=== PATIENT | female | born 1980 | race Caucasian/White ===

== ENCOUNTER 2019-10-24 14:38 | Emergency (ER) | payer MEDICAID, SELFPAY ==
[2019-10-24 14:52] VITALS: BP 125/65; PULSE 71; RESP 17; TEMP 36.4; O2SAT 100; BMI 20.7
--- NOTE | 2019-10-24 14:54 | W.ED.HA ---
HPI - Headache General: Chief Complaint: Headache Stated Complaint: AZUL, fever Time Seen by Provider: 10/24/19 14:49 Source: patient Mode of arrival: ambulatory Limitations: no limitations History of Present Illness: HPI Narrative: 39-year-old female who has a long history of migraines states she started having a migraine headache roughly an hour ago. She states this feels like previous migraines and gradually worsened. She has light sensitivity along with sensitivity to loud noises. She denies any vomiting. She denies any neck pain. MD elicited complaint: headache Onset (ago): hour(s) Onset description: gradually Location: diffuse Severity: moderate Quality & Timing: aching Exacerbating factors: light Relieving factors: dark room Associated symptoms: Deny chest pain, fever(s), nausea, rash or vomiting Review of Systems Const: Denies: fever, chills, body aches or change in appetite Eyes: Denies: blurry vision or eye discomfort ENMT: Denies: throat pain or dental pain Card: Denies: chest pain Resp: Denies: shortness of breath GI: Denies: abdominal pain, nausea, vomiting or diarrhea : Denies: painful urination Musc: Denies: neck pain or back pain Skin/Breast: Denies: rash Neuro: Reports: headache Psych: Denies: depression Gaudencio/Lymph: Denies: easy bruising All/Imm: Denies: hives PFSH ED PFSH: Social History Smoking and tobacco status: current every day smoker Physical Exam Const: COMMON NORMALS: no apparent distress, oriented x3 and healthy appearing HENMT: COMMON NORMALS: normocephalic and head/scalp atraumatic HEAD & SCALP: normocephalic and atraumatic Eye: COMMON NORMALS: PERRL and EOMs intact bilaterally PUPIL: Yes PERRL Neck/C-Spine: COMMON NORMALS: full ROM and supple Chest: COMMONS NORMALS: inspection of chest normal and palpation of chest normal Resp: COMMON NORMALS: normal respiratory effort, no retractions, no use of accessory muscles and clear to auscultation bilaterally AUSCULTATION: clear to auscultation bilaterally Cardio: COMMON NORMALS: regular rate, regular rhythm and no murmurs RATE: regular rate RHYTHM: regular rhythm GI: COMMON NORMALS: normal to inspection, nondistended, normoactive bowel sounds, soft to palpation, non-tender and no masses PALPATION: Yes soft Extremity: COMMON NORMALS: normal to inspection and full ROM Neuro: COMMON NORMALS: oriented x3, moves all extremities and no focal motor deficits Psych: COMMON NORMALS: mental status grossly normal, thought process normal and cooperative THOUGHT PROCESS: normal thought process Skin: COMMON NORMALS: no rashes or lesions noted and no wounds GENERAL SKIN EXAM: no rashes or lesions noted Course Vital Signs: Vital signs: Vital Signs Temperature 97.6 F 10/24/19 14:52 Pulse Rate 71 10/24/19 14:52 Respiratory Rate 17 10/24/19 14:52 Blood Pressure 125/65 10/24/19 14:52 Pulse Oximetry 100 10/24/19 14:52 MDM - Headache MDM Narrative: Medical decision making narrative: Patient presents with a headache that is likely a migraine headache. Patient is well-appearing here and has no signs of meningitis or subarachnoid hemorrhage. Patient's headache is much improved after IV Reglan and Benadryl. Patient is to return if worsening. Discharge Plan Discharge Prescriptions: No Action Multiple Vitamins Tablet 1 tab PO DAILY RF: 0 amlodipine 2.5 mg tablet 2.5 mg PO DAILY RF: 0 Aspir-81 81 mg Tablet,Delayed Release (Dr/Ec) 81 mg PO DAILY RF: 0 alprazolam 0.5 mg tablet 0.5 mg PO TID PRN (Reason: Anxiety) RF: 0 gabapentin 300 mg capsule 300 mg PO TID RF: 0 Tylenol 1 tab PO PRN RF: 0 ibuprofen 1 tab PO PRN RF: 0 Coding Level of Care Code ED Respiratory Therapy Instructor for Chg Fwd Exam Comprehensive
[2019-10-24] MEDS: metoclopramide 5 mg/mL SDV 2 mL 10 MG IVP (15:17)
[2019-10-24] MEDS: diphenhydrAMINE 50 mg/mL SDV 1mL IVP (15:19)
[2019-10-24] MEDS: ketorolac 30 mg/mL INJ IVP (15:20)
[2019-10-24 16:37] VITALS: BP 113/93; PULSE 66; RESP 18; O2SAT 98
[2019-10-24 17:12] VITALS: BP 126/91; PULSE 79; RESP 15; O2SAT 95
== END 2019-10-24 17:13 | disposition home or self-care (01) ==
PROVIDERS: Emergency Provider Emergency Medicine
DX: R51 Headache (principal); Z79.82 Long term (current) use of aspirin; F17.210 Nicotine dependence, cigarettes, uncomplicated
CPT/HCPCS: 12345; 96374; 96375; 99282; 99283; J1200; J1885; J2765

== ENCOUNTER → 2020-05-01 15:17 | Outpatient (BNVA) | payer MEDICAID, SELFPAY | PROVIDERS: PCP Family Medicine; Visit Provider Internal Medicine Rheumatology | DX: I73.1 Thromboangiitis obliterans [Buerger's disease] (principal); R76.8 Other specified abnormal immunological findings in serum; R23.0 Cyanosis; F17.210 Nicotine dependence, cigarettes, uncomplicated | CPT/HCPCS: 99204 ==

== ENCOUNTER 2020-05-09 15:16 | Outpatient (CLI) | payer MEDICAID, SELFPAY ==
--- NOTE | 2020-05-09 15:32 | XRR_ITS ---
PROCEDURE INFORMATION: Exam: XR Left Hand Exam date and time: 05/09/2020 3:37 PM Age: 39 years old Clinical indication: Condition or disease; Other: Buerger's disease TECHNIQUE: Imaging protocol: XR Left hand. Views: 3 or more views. COMPARISON: No relevant prior studies available. FINDINGS: Bones/joints: No fracture or other acute osseous abnormality. No acute or chronic joint abnormality demonstrated. Soft tissues: The soft tissues appear unremarkable. XR/XR hand LT min 3V* [id number] IMPRESSION: Unremarkable left hand radiographic series.
--- NOTE | 2020-05-09 15:32 | XRR_ITS ---
PROCEDURE INFORMATION: Exam: XR Left Foot Complete Exam date and time: 05/09/2020 3:37 PM Age: 39 years old Clinical indication: Condition or disease; Other: Buerger's disease TECHNIQUE: Imaging protocol: XR Left foot. Views: 3 or more views. COMPARISON: No relevant prior studies available. FINDINGS: Bones/joints: No fracture or other acute osseous abnormality. No acute or chronic joint abnormality demonstrated. Soft tissues: The soft tissues appear unremarkable. XR/XR foot LT min 3V* [id number] IMPRESSION: Unremarkable left foot radiographic series.
--- NOTE | 2020-05-09 15:32 | XRR_ITS ---
PROCEDURE INFORMATION: Exam: XR Right Hand Exam date and time: 05/09/2020 3:37 PM Age: 39 years old Clinical indication: Condition or disease; Other: Buerger's disease TECHNIQUE: Imaging protocol: XR Right hand. Views: 3 or more views. COMPARISON: No relevant prior studies available. 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 There has been amputation of the distal index finger at the level of the base of the distal phalanx. There is deformity secondary to osteolysis of the distal phalanx of the middle finger. The osseous structures are otherwise unremarkable. No acute or chronic joint abnormality demonstrated. Soft tissues: Absent distal soft tissues of the index and middle fingers. The soft tissues are otherwise unremarkable. XR/XR hand RT min 3V* [id number] IMPRESSION: 1. 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 2. The examination is otherwise unremarkable.
--- NOTE | 2020-05-09 15:32 | XRR_ITS ---
PROCEDURE INFORMATION: Exam: XR Right Foot Complete Exam date and time: 05/09/2020 3:37 PM Age: 39 years old Clinical indication: Condition or disease; Other: Buerger's disease TECHNIQUE: Imaging protocol: XR Right foot. Views: 3 or more views. COMPARISON: No relevant prior studies available. FINDINGS: Bones/joints: No fracture or other acute osseous abnormality. No acute or chronic joint abnormality demonstrated. Soft tissues: The soft tissues appear unremarkable. XR/XR foot RT min 3V* [id number] IMPRESSION: Unremarkable right foot radiographic series.
[2020-05-09 17:10] LABS: Hepatitis B Core AB, Total Reactive (Nonreactive); Hepatitis B Surface Antigen Non-Reactive (Nonreactive); Hepatitis C Virus Antibody Reactive (Nonreactive)
[2020-05-12 11:57] LABS: COMPLEMENT, TOTAL (CH50) >60 U/mL (31-60)
[2020-05-12 13:59] LABS: COMPLEMENT COMPONENT C3C 145 mg/dL (83-193); COMPLEMENT COMPONENT C4C 29 mg/dL (15-57)
[2020-05-12 15:28] LABS: THYROID PEROXIDASE ANTIBODIES 1 IU/mL (<9)
[2020-05-13 11:53] LABS: CENTROMERE B ANTIBODY <1.0 NEG AI (<1.0 NEG); JO-1 ANTIBODY <1.0 NEG AI (<1.0 NEG); RNP ANTIBODY <1.0 NEG AI (<1.0 NEG); SCL-70 ANTIBODY <1.0 NEG AI (<1.0 NEG); SJOGREN'S ANTIBODY (SS-A) <1.0 NEG AI (<1.0 NEG); SM ANTIBODY <1.0 NEG AI (<1.0 NEG)
[2020-05-14 12:58] LABS: ANA PATTERN Nuclear, Speckled; ANA SCREEN, IFA POSITIVE (NEGATIVE)
[2020-05-16 00:28] LABS: DNA AB (DS) CRITHIDIA,IFA NEGATIVE (NEGATIVE)
== END 2020-05-09 15:17 | disposition home or self-care (01) ==
PROVIDERS: PCP Family Medicine; Visit Provider Internal Medicine Rheumatology
DX: I73.1 Thromboangiitis obliterans [Buerger's disease] (principal); R76.8 Other specified abnormal immunological findings in serum; Z89.011 Acquired absence of right thumb
CPT/HCPCS: 73130; 73630; 83516; 86704; 86803; 87340

== ENCOUNTER 2021-02-21 18:08 | Emergency (ER) | payer MEDICAID, SELFPAY ==
[2021-02-21] VITALS (7 sets, daily range): BP systolic 116–140; BP diastolic 72–83; PULSE 76–102; RESP 14–21; TEMP 36.7; O2SAT 92–98
--- NOTE | 2021-02-21 18:57 | CTR_ITS ---
PROCEDURE INFORMATION: Exam: CT Head Without Contrast Exam date and time: 02/21/2021 6:57 PM Age: 40 years old Clinical indication: Syncope and collapse; Patient HX: PT found unresponsive ? fall TECHNIQUE: Imaging protocol: Computed tomography of the head without contrast. Radiation optimization: All CT scans at this facility use at least one of these dose optimization techniques: automated exposure control; mA and/or kV adjustment per patient size (includes targeted exams where dose is matched to clinical indication); or iterative reconstruction. COMPARISON: CT head wo con* [id number] 07/30/2017 12:34 AM RADIATION DOSE METRICS: Total DLP (mGy-cm): 770.95 FINDINGS: Brain: Normal. No hemorrhage. Unremarkable white matter. No mass effect. Cerebral ventricles: No ventriculomegaly. Paranasal sinuses: Visualized sinuses are unremarkable. No fluid levels. Mastoid air cells: Visualized mastoid air cells are well aerated. Bones/joints: Unremarkable. No acute fracture. Soft tissues: Unremarkable. CT/CT head wo con* [id number] IMPRESSION: No acute intracranial abnormality. Radiation Dose CTDIVOL = (mGy): DLP = 770.95 (mGy-cm)
--- NOTE | 2021-02-21 18:58 | XRR_ITS ---
PROCEDURE INFORMATION: Exam: XR Chest Exam date and time: 02/21/2021 6:58 PM Age: 40 years old Clinical indication: Injury or trauma; Fall; Blunt trauma (contusions or hematomas) TECHNIQUE: Imaging protocol: XR of the chest. Views: 1 view. COMPARISON: CT Chest/Abdomen/Pelvis w IV* 07/30/2017 12:49 AM FINDINGS: Lungs: Emphysema. No focal lung opacities. No vascular dilation. Pleural spaces: Unremarkable. No pleural effusion. No pneumothorax. Heart/Mediastinum: Unremarkable. No cardiomegaly. Bones/joints: Unremarkable. XR/XR chest 1V portable [id number] IMPRESSION: Negative chest. No acute abnormality identified.
[2021-02-21 19:02] LABS: Glucose Point of Care 91 mg/dL (70-110)
[2021-02-21] MEDS: sodium chloride 0.9% 1,000 ML 999 ML IV (19:04)
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
[2021-02-21] MEDS: naloxone 0.4 mg/ml SDV IVP (21:13)
== END 2021-02-21 22:27 | disposition home or self-care (01) ==
PROVIDERS: Emergency Provider Emergency Medicine; PCP Family Medicine
DX: T40.601A Poisoning by unspecified narcotics, accidental (unintentional), initial encounter (principal); T40.7X1A Poisoning by cannabis (derivatives), accidental (unintentional), initial encounter; Z79.82 Long term (current) use of aspirin; F17.210 Nicotine dependence, cigarettes, uncomplicated
CPT/HCPCS: 36416; 70450; 71045; 82962; 96361; 96374; 99284; J2310; J7030

== ENCOUNTER 2021-03-02 19:58 | Emergency (ER) | payer MEDICAID, SELFPAY ==
[2021-03-02 20:05] VITALS: BP 143/90; PULSE 93; RESP 16; TEMP 36.7; O2SAT 95; BMI 24.0
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
[2021-03-02] MEDS: naproxen 500 mg Tablet PO (20:21)
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
[2021-03-02 21:33] VITALS: RESP 16
== END 2021-03-02 21:34 | disposition home or self-care (01) ==
PROVIDERS: Emergency Provider Emergency Medicine; PCP Family Medicine
DX: M25.572 Pain in left ankle and joints of left foot (principal); M25.521 Pain in right elbow; F17.210 Nicotine dependence, cigarettes, uncomplicated; V89.2XXA Person injured in unspecified motor-vehicle accident, traffic, initial encounter
CPT/HCPCS: 73080; 73610; 73630; 99283

== ENCOUNTER 2022-04-30 11:23 | Emergency (ER) | payer MEDICAID, SELFPAY ==
[2022-04-30 11:30] VITALS: BP 140/92; PULSE 118; RESP 18; TEMP 36.4; O2SAT 94; BMI 22.8
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
--- NOTE | 2022-04-30 11:41 | XR_ITS ---
WS: [id number] Exam: XR finger LT min 2V [id number] Date/Time of Exam: 04/30/2022 12:23 PM Reason For Exam: 3rd digit distal necrosis The third finger is targeted for radiographic evaluation. No acute fracture or bone destruction. Mild soft tissue swelling No radiopaque soft tissue foreign damon dies are seen. Joint structures are intact. XR/XR finger LT min 2V [id number] IMPRESSION: 1. Soft tissue swelling of the distal third finger but no fracture or bone dest ruction.
[2022-04-30 12:03] VITALS: RESP 16
[2022-04-30] MEDS: morphine 4 mg/mL SDV 1 mL IVP (12:03)
[2022-04-30 12:21] LABS: Basophils % 0.5 %; Eosinophils # 0.1 10^3/uL (0.0-0.8); Eosinophils % 1.5 %; Hematocrit 50.7 % (37.0-47.0); Hemoglobin 16.1 g/dL (11.5-15.3); Lymphocytes # 2.2 10^3/uL (0.8-4.8); Lymphocytes % 33.6 %; Mean Corpuscular HGB Conc 31.8 g/dL (30.0-36.0); Mean Corpuscular Hemoglobin 26.1 pg (28.0-34.0); Mean Corpuscular Volume 82.2 fl (81-99); Mean Platelet Volume 11.7 fL (7.4-10.4); Monocytes # 0.8 10^3/uL (0.2-0.9); Monocytes % 12.3 %; Neutrophils # 3.41 10^3/uL (1.8-7.7); Neutrophils % 51.8 %; Nucleated Red Blood Cells % 0 %; Platelet Count 224 10^3/cmm (130-400); Red Blood Count 6.17 10^6/uL (4.1-5.3); Red Cell Distribution Width 14.5 % (12.1-15.1); White Blood Count 6.6 10^3/uL (4.0-10.0)
[2022-04-30 12:24] LABS: Erythrocyte Sedimentation Rate 6 mm/hr (0-15)
[2022-04-30 12:38] LABS: Alanine Aminotransferase 32 U/L (0-33); Albumin Level 4.1 g/dL (3.5-5.2); Alkaline Phosphatase 185 U/L (35-105); Anion Gap 12.9 (5-19); Aspartate Amino Transferase 21 U/L (0-32); Blood Urea Nitrogen 14 mg/dL (6-20); Calcium 9.3 mg/dL (8.5-10.5); Carbon Dioxide 27 mmol/L (22-29); Chloride 99 mmol/L (98-107); Globulin 3.5 g/dL (1.3-4.6); Glomerular Filtration Rate 91.8 mL/min (90-130); Glucose 100 mg/dL (65-115); Osmolality Calculated 281 mOsm/kg (285-295); Potassium 3.9 mmol/L (3.5-5.1); Sodium 135 mmol/L (136-145); Total Bilirubin 0.2 mg/dL (0.15-1.2); Total Protein 7.6 g/dL (6.6-8.7)
[2022-04-30 12:39] LABS: Lactic Sepsis W/Reflex 1.3 mmol/L (0.5-2.2)
--- NOTE | 2022-04-30 12:55 | PC.PHAR ---
pt states she takes care of her own medications-pt states still taking amlodipine 10mg daily [facility] pharmacy states last filled 02/10/2021-pt states she had an old rx for norco 5-325mg [facility] pharmacy states they havent filled a norco for the pt-pt states she took her last one today-notes are made in the pharmacy comments
[2022-04-30] MEDS: sodium chloride 0.9% 1,000 ML 999 ML IV (13:12)
--- NOTE | 2022-04-30 13:14 | PC.NURSE ---
while at bedside pt is in nad. pt denies any further needs.
[2022-04-30 14:23] VITALS: BP 124/86; PULSE 77; RESP 16; O2SAT 100
--- NOTE | 2022-05-03 14:25 | DCPLANNER ---
Addendum entered by Lauren Can 05/13/22 13:58: Patient had a follow up appointment scheduled for 05.06.[address] Bai at ortho - patient did attend appointment. Original Note: corporate operations compliance manager had message to schedule a follow up appointment for patient with ortho. corporate operations compliance manager sent patients information to the front office staff at ortho. Patients information will be printed and reviewed. Clinic will call patient with appointment information.
== END 2022-04-30 14:25 | disposition home or self-care (01) ==
PROVIDERS: Emergency Provider Emergency Medicine; PCP Family Medicine
DX: I96 Gangrene, not elsewhere classified (principal); I73.1 Thromboangiitis obliterans [Buerger's disease]; Z79.82 Long term (current) use of aspirin; F17.210 Nicotine dependence, cigarettes, uncomplicated
CPT/HCPCS: 73140; 80053; 83605; 85025; 85651; 86140; 96374; 99284; J2270; J7030

== ENCOUNTER 2022-05-02 01:11 | Emergency (ER) | payer MEDICAID, SELFPAY ==
[2022-05-02 01:49] VITALS: BP 133/86; PULSE 68; RESP 17; TEMP 36.6; O2SAT 99; BMI 22.9
[2022-05-02 03:27] VITALS: RESP 20; O2SAT 94
[2022-05-02] MEDS: oxyCODONE-APAP 5-325 mg Tablet 2 TAB PO (03:27)
[2022-05-02] MEDS: cephALEXin 500 mg Capsule 1000 MG PO (03:28)
[2022-05-02] MEDS: ondansetron 2 mg/ML SDV 2 mL 4 MG IVP (03:28)
[2022-05-02] MEDS: ketorolac 30 mg/mL INJ IM (03:29)
[2022-05-02 03:38] VITALS: BP 114/70
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
== END 2022-05-02 03:41 | disposition home or self-care (01) ==
PROVIDERS: Emergency Provider Emergency Medicine; PCP Family Medicine
DX: I73.1 Thromboangiitis obliterans [Buerger's disease] (principal); L98.499 Non-pressure chronic ulcer of skin of other sites with unspecified severity; L03.012 Cellulitis of left finger; Z79.82 Long term (current) use of aspirin; F17.210 Nicotine dependence, cigarettes, uncomplicated
CPT/HCPCS: 96372; 96374; 99284; J1885; J2405

== ENCOUNTER 2022-05-14 14:50 | Emergency (ER) | payer MEDICAID, SELFPAY ==
[2022-05-14 15:21] VITALS: BP 136/84; PULSE 85; RESP 16; TEMP 36.5; O2SAT 97; BMI 24.3
--- NOTE | 2022-05-14 17:19 | XRR_ITS ---
PROCEDURE INFORMATION: Exam: XR Left Finger(s) Exam date and time: 05/14/2022 5:54 PM Age: 41 years old Clinical indication: Pain; Finger(s); Left; Additional info: Ischemia with wound finger, middle TECHNIQUE: Imaging protocol: Radiologic exam of the Left fingers. Views: Minimum 2 views. COMPARISON: No relevant prior studies available. FINDINGS: Bones/joints: Osteolytic changes in the distal phalangeal tuft of the 3rd digit. The bone is fragmented. Unremarkable joint spaces. Soft tissues: The 3rd digit distal soft tissues are truncated with possible ulcer. XR/XR finger LT min 2V [id number] IMPRESSION: Nonspecific acro-osteolysis changes of 3rd digit distal phalanx.
[2022-05-14 19:32] LABS: Basophils % 0.4 %; Eosinophils # 0.1 10^3/uL (0.0-0.8); Eosinophils % 1.1 %; Hematocrit 47.7 % (37.0-47.0); Hemoglobin 15.6 g/dL (11.5-15.3); Lymphocytes # 2.3 10^3/uL (0.8-4.8); Lymphocytes % 32.1 %; Mean Corpuscular HGB Conc 32.7 g/dL (30.0-36.0); Mean Corpuscular Hemoglobin 26.6 pg (28.0-34.0); Mean Corpuscular Volume 81.3 fl (81-99); Mean Platelet Volume 10.9 fL (7.4-10.4); Monocytes # 0.5 10^3/uL (0.2-0.9); Monocytes % 6.7 %; Neutrophils # 4.25 10^3/uL (1.8-7.7); Neutrophils % 59.3 %; Nucleated Red Blood Cells % 0 %; Platelet Count 251 10^3/cmm (130-400); Red Blood Count 5.87 10^6/uL (4.1-5.3); White Blood Count 7.2 10^3/uL (4.0-10.0)
[2022-05-14 19:33] LABS: Erythrocyte Sedimentation Rate 3 mm/hr (0-15)
[2022-05-14 19:49] LABS: Alanine Aminotransferase 41 U/L (0-33); Albumin Level 4.4 g/dL (3.5-5.2); Alkaline Phosphatase 304 U/L (35-105); Anion Gap 13.9 (5-19); Aspartate Amino Transferase 24 U/L (0-32); Blood Urea Nitrogen 10 mg/dL (6-20); Calcium 10.1 mg/dL (8.5-10.5); Carbon Dioxide 26 mmol/L (22-29); Chloride 99 mmol/L (98-107); Glomerular Filtration Rate 91.8 mL/min (90-130); Glucose 82 mg/dL (65-115); Osmolality Calculated 278 mOsm/kg (285-295); Potassium 3.9 mmol/L (3.5-5.1); Sodium 135 mmol/L (136-145); Total Bilirubin 0.3 mg/dL (0.15-1.2); Total Protein 8.4 g/dL (6.6-8.7)
== END 2022-05-14 20:51 | disposition left against medical advice (07) ==
PROVIDERS: Emergency Medicine; Emergency Provider Family Medicine; PCP Family Medicine
DX: Z53.21 Procedure and treatment not carried out due to patient leaving prior to being seen by health care provider (principal)
CPT/HCPCS: 36415; 73140; 80053; 85025; 85651; 86140; 99283

== ENCOUNTER 2022-05-16 11:05 | Emergency (ER) | payer MEDICAID, SELFPAY ==
[2022-05-16 11:33] VITALS: BP 110/80; PULSE 77; RESP 16; TEMP 36.2; O2SAT 98
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
[2022-05-16 14:43] LABS: Basophils % 0.7 %; Eosinophils # 0.1 10^3/uL (0.0-0.8); Eosinophils % 1.1 %; Hematocrit 48.5 % (37.0-47.0); Hemoglobin 15.5 g/dL (11.5-15.3); Lymphocytes # 1.7 10^3/uL (0.8-4.8); Mean Corpuscular Hemoglobin 26.5 pg (28.0-34.0); Mean Corpuscular Volume 82.8 fl (81-99); Mean Platelet Volume 10.8 fL (7.4-10.4); Monocytes # 0.7 10^3/uL (0.2-0.9); Monocytes % 12.5 %; Neutrophils # 3.14 10^3/uL (1.8-7.7); Neutrophils % 55.3 %; Nucleated Red Blood Cells % 0 %; Platelet Count 226 10^3/cmm (130-400); Red Blood Count 5.86 10^6/uL (4.1-5.3); White Blood Count 5.7 10^3/uL (4.0-10.0)
[2022-05-16 14:54] VITALS: BP 124/83; PULSE 71; RESP 16; TEMP 36.2; O2SAT 96
== END 2022-05-16 14:55 | disposition home or self-care (01) ==
PROVIDERS: Emergency Provider Family Medicine; PCP Family Medicine
DX: L03.012 Cellulitis of left finger (principal); F17.210 Nicotine dependence, cigarettes, uncomplicated; I73.1 Thromboangiitis obliterans [Buerger's disease]; I70.90 Unspecified atherosclerosis
CPT/HCPCS: 36415; 85025; 87040; 99283

== ENCOUNTER 2022-12-12 16:17 | Emergency (ER) | payer MEDICAID, SELFPAY ==
[2022-12-12 16:25] VITALS: BP 106/58; PULSE 80; RESP 18; TEMP 36.5; O2SAT 10; BMI 23.1
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
--- NOTE | 2022-12-12 17:12 | XRR_ITS ---
PROCEDURE INFORMATION: Exam: XR Right Hand Exam date and time: 12/12/2022 5:17 PM Age: 42 years old Clinical indication: Swelling; Fingers; Right; Additional info: Paronychia TECHNIQUE: Imaging protocol: Radiologic exam of the right hand. Views: 3 or more views. COMPARISON: CR XR hand RT min 3V* [id number] 05/09/2020 3:41 PM FINDINGS: Bones/joints: The patient appears to be status post resection of the 2nd distal phalanx. Erosive changes are seen along the tip of the 2nd middle phalanx. Slightly progressive erosive changes are seen along the tip of the 3rd and 4th distal phalanges. Soft tissues: Normal. XR/XR hand RT min 3V* [id number] IMPRESSION: Nonspecific erosive changes seen along the tips the 2nd middle phalanx, 3rd distal phalanx, and 4th distal phalanx.
[2022-12-12] MEDS: HYDROcodone-acetaminophen 10-325 mg Tablet 1 TAB PO (17:29)
[2022-12-12 17:56] VITALS: BP 142/74; PULSE 88
--- NOTE | 2022-12-13 08:58 | DCPLANNER ---
Addendum entered by Lauren Can 12/16/22 10:24: route sales manager called [facility] ortho to confirm that patients information had been received. route sales manager was told that patients information had been received and that the provider is reviewing. Addendum entered by Lauren Can 12/14/22 11:19: route sales manager received the following message from the ortho clinic regarding follow up appointment: Dr. Mccullough reviewed and stated he recommends she be sent to a specialist in [place] route sales manager spoke with patient and explained this, patient wanted to be referred to [facility]. route sales manager faxed patients information to [facility]. Original Note: route sales manager had message to schedule a follow up appointment for patient with ortho. route sales manager sent patients to the front office staff at ortho. Patients information will be printed and reviewed. Clinic will call patient with appointment information.
== END 2022-12-12 18:27 | disposition home or self-care (01) ==
PROVIDERS: Emergency Provider Nurse Practitioner Family; PCP Family Medicine
DX: I73.1 Thromboangiitis obliterans [Buerger's disease] (principal); M86.141 Other acute osteomyelitis, right hand
CPT/HCPCS: 73130; 99283

== ENCOUNTER 2022-12-14 13:46 | Emergency (ER) | payer MEDICAID, SELFPAY ==
[2022-12-14 13:52] VITALS: BP 138/85; PULSE 70; RESP 14; TEMP 36.4; O2SAT 98; BMI 23.1
[2022-12-14 15:46] VITALS: BP 131/61; PULSE 78; RESP 21; TEMP 36.5; O2SAT 97
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
[2022-12-14] MEDS: morphine 4 mg/mL SDV 1 mL IM (16:21)
[2022-12-14 17:04] VITALS: RESP 20; O2SAT 98
[2022-12-14] MEDS: oxyCODONE-APAP 5-325 mg Tablet 1 TAB PO (17:04)
[2022-12-14 17:10] VITALS: BP 163/87; PULSE 75; RESP 16; O2SAT 97
== END 2022-12-14 17:12 | disposition home or self-care (01) ==
PROVIDERS: Emergency Provider Physician Assistant; PCP Family Medicine
DX: I73.1 Thromboangiitis obliterans [Buerger's disease] (principal); Z79.82 Long term (current) use of aspirin; F17.210 Nicotine dependence, cigarettes, uncomplicated
CPT/HCPCS: 96372; 99284; J2270

== ENCOUNTER 2023-12-27 09:58 | Outpatient (CLI) | payer MEDICAID, SELFPAY ==
--- NOTE | 2023-12-27 10:00 | MM_ITS ---
WS: [id number] VIEWS: MLO, CC, and ML views both breasts. 3D digital tomosynthesis is also included in this exam. S pot compression images with tomography in the MLO and ML projections of the LEFT breast were also inc luded in the series. Comparison made with prior exam of 02/23/2016. Findings: An 8 mm lobulated nodule is noted in the LEFT breast at about the 6 o'clock position. Regional ultras ound is recommended for further work-up. Stable appearing densities are noted in the RIGHT breast. No new findings in the RIGHT breast. The breasts are extremely dense which lowers the sensitivity of ma mmography. MM/[id number] Impression: BI-RADS: 0-Incomplete: Need additional imaging evaluation FOLLOW-UP: See Report This mammogram was also analyzed by the Computer Aided Detection System R2 Imag e Heel Sprayer.
--- NOTE | 2023-12-27 10:00 | US_ITS ---
WS: [id number] Exam: US breast LT limited* [id number] Date/Time of Exam: 12/27/2023 11:07 AM Reason For Exam: L BREAST PAIN Regional ultrasound of the lower medial and lateral quadrants was performed. At the 6 o'clock position there is a 1.1 x 0.5 cm bilobulated cyst which corresponds to a nodular den sity that is seen on the patient's mammogram performed on the same day. There was no suspicious solid mass or nodule in this region. US/US breast LT limited* [id number] IMPRESSION: 1. 1.1 x 0.5 cm bilobulated cyst at the 6 o'clock position in the LEFT breast.
== END 2023-12-27 09:59 | disposition home or self-care (01) ==
LOC: RAD 09:58
PROVIDERS: PCP Family Medicine; Visit Provider Family Medicine
DX: N64.4 Mastodynia (principal); N60.02 Solitary cyst of left breast
CPT/HCPCS: 76642; 77062; G0279